=== PATIENT | male | born 1980 | race Caucasian/White ===

== ENCOUNTER 2023-09-19 18:51 | Emergency (ER) | payer BC ==
[2023-09-19 19:29] VITALS: BP 124/91; PULSE 92; RESP 18; TEMP 97.9; BMI 28.6
[2023-09-19] MEDS ORDERED: DIPHTH,PERTUSS(ACELL),TET 0.5 ML DISP.SYRIN IM ONE ×2 (20:46→20:52)
[2023-09-19] MEDS ORDERED: ACETAMINOPHEN 325 MG TABLET (FP) PO ONE (20:46)
[2023-09-19] MEDS ORDERED: ACETAMINOPHEN 325 MG TABLET (FP) ONE (20:51)
== END 2023-09-19 22:41 | disposition home or self-care (01) ==
LOC: JERFT 18:51
PROC: 0HQGXZZ Repair Left Hand Skin, External Approach (ICD-10-PCS; principal; 2023-09-19)
PROC: 3E0234Z Introduction of Serum, Toxoid and Vaccine into Muscle, Percutaneous Approach (ICD-10-PCS; 2023-09-19)
DX: S61.211A Laceration without foreign body of left index finger without damage to nail, initial encounter (principal); W26.8XXA Contact with other sharp object(s), not elsewhere classified, initial encounter
CPT/HCPCS: 73130-TC-LT-FY; 90715; 99283-25